=== PATIENT | male | born 1980 | race Hispanic/Latino ===

== ENCOUNTER 2018-10-29 12:12 | Emergency (ER) | payer OTHER ==
[2018-10-29] MEDS ORDERED: IBUPROFEN 600 MG TABLET ONE (13:31)
== END 2018-10-29 13:46 | disposition home or self-care (01) ==
LOC: EDH 12:12
DX: S40.022A Contusion of left upper arm, initial encounter (principal); F41.9 Anxiety disorder, unspecified; X50.0XXA Overexertion from strenuous movement or load, initial encounter; Y93.89 Activity, other specified; Y92.89 Other specified places as the place of occurrence of the external cause; Y99.8 Other external cause status